=== PATIENT | male | born 1975 | race Caucasian/White ===

== ENCOUNTER 2021-05-18 14:06 | Emergency (ER) | payer OTHER, SELFPAY ==
[2021-05-18 14:26] VITALS: BP 130/84; PULSE 79; RESP 18; TEMP 36.6; O2SAT 100
--- NOTE | 2021-05-18 15:06 | ED.EYEPROB ---
HPI - Eye Problem General Chief complaint: Eye Problems Stated complaint: knot on rt eye lid Time Seen by Provider: 05/18/21 15:00 Source: patient Mode of arrival: ambulatory Limitations: no limitations History of Present Illness HPI Narrative: 45-year-old male presented for complaint of knot on the right upper eyelid for the last 5 days. He states he has been messing with it. Also used warm compresses and [id number] eyedrops. He has a history of styes in the past that went away quickly. Currently denies any pain, drainage, or vision changes. chief complaint: eye pain Related Data Allergies Allergy/AdvReac Type Severity Reaction Status Date / Time No Known Allergies Allergy Verified 05/18/21 15:05 Review of Systems Review of Systems: CONSTITUTIONAL: Denies body aches, fever, chills EYES:Endorses swelling, redness and pain to right eye; denies FB sensation, photophobia visual changes ENT: Denies rhinorrhea, congestion, sore throat, or otalgia. CARDIOVASCULAR: Denies chest pain, palpitations RESPIRATORY: Denies cough or dyspnea. GASTROINTESTINAL: Denies abdominal pain, nausea, vomiting, or diarrhea. SKIN: Denies rash, itching, or wounds. MUSCULOSKELETAL: Denies back pain, joint pain, or myalgia. NEUROLOGIC: Denies headache, numbness, tingling, or weakness. PSYCH: Denies depression or anxiety. All systems reviewed & are unremarkable except as noted in HPI and below PMFSH Comments At time of signature, I have reviewed and agree with nursing past medical, surgical, social and family history unless otherwise noted. Please see nursing chart for further information. There is no relevant family history pertinent to the presenting complaint Exam Narrative: GENERAL: Well-appearing HEAD: Normocephalic, atraumatic. EYES: No Conjunctival injection, Right upper eye lid swelling/redness firm nodule c/w stye. EOMI. Lid eversion revealed no foreign body ENT: Mucous membranes pink and moist. No rhinorrhea. NECK: Normal AROM. Supple. CHEST: No respiratory distress. Clear to auscultation. HEART: Regular rate and rhythm. ABDOMEN: Soft, nontender, nondistended MUSCULOSKELETAL: No bony tenderness. EXTREMITIES: Normal range of motion. SKIN: Warm, dry, no rash. Normal skin turgor. NEURO: No focal deficits. Alert and oriented x3. Steady gait PSYCH: Normal affect. Course Course Emergency Course: Patient is aware of diagnosis, understands and agrees to treatment plan. Anticipatory guidance given. Patient agrees to follow-up as directed and is aware of reasons to seek care at the emergency department. Portions of this record may have been created with voice recognition software Level of Care: Express Care Visit Vital Signs Vital signs: Vital Signs Temperature 97.9 F 05/18/21 14:26 Pulse Rate 79 05/18/21 14:26 Respiratory Rate 18 05/18/21 14:26 Blood Pressure 130/84 05/18/21 14:26 Pulse Oximetry 100 05/18/21 14:26 Temperature 97.9 F 05/18/21 14:26 Pulse Rate 79 05/18/21 14:26 Respiratory Rate 18 05/18/21 14:26 Blood Pressure 130/84 05/18/21 14:26 Pulse Oximetry 100 05/18/21 14:26 MDM - Eye Problem MDM Narrative Medical decision making narrative: Exam c/w external hordeolum. Pt has been 'messing with it.' Abx drops prescribed. He is strongly advised to f/u with opth should sx worsen v/u. He is appropriate for outpatient treatment and follow-up Differential Diagnosis Differential diagnosis: Likely corneal abrasion, conjunctivitis, acute iritis and other (luis beckman) Discharge Plan Discharge Clinical Impression: External hordeolum Qualifiers: Laterality: right Eyelid: upper Qualified Code(s): H00.011 - Hordeolum externum right upper eyelid Patient Disposition: Home, Self-Care Condition: Stable Instructions: Luis Modi (ED) Additional Instructions: Apply warm, moist compresses on the affected area frequently (for 5 to 10 minutes three to fi
== END 2021-05-18 15:13 | disposition home or self-care (01) ==
PROVIDERS: Emergency Provider Nurse Practitioner Family
DX: H00.011 Hordeolum externum right upper eyelid (principal)
CPT/HCPCS: 99213; G0463